=== PATIENT | male | born 1970 ===

== ENCOUNTER 2025-10-20 17:11 | Emergency (ER) | payer OTHER ==
[~2025-10-20 17:11] MED LIST: Iopamidol 370 76% 100 ML VIAL ONE
[2025-10-20 17:33] LABS: Glucose, Urine (Dipstick) Negative (Negative); Leukocyte Negative (Negative); Protein, Urine (Dipstick) 30 mg/dL (Neg-Trace); Specific Gravity, Urine 1.020 (1.005-1.030)
[2025-10-20 17:39] LABS: Bacteria/HPF Rare-Few HPF (None Seen); CAUTI Indications for Culture Pelvic or flank pain; WBC/HPF 0-3 HPF (0-3)
[2025-10-20 17:40] LABS: Mucous/LPF Few LPF (<2+); Urine Culture Reflex No No
[2025-10-20 17:42] LABS: #Basophils 0.1 thou/uL (0.0-0.2); #Eosinophils 0.3 thou/uL (0.0-0.7); #Lymphocytes 4.0 thou/uL (1.20-3.40); #Monocytes 1.0 thou/uL (0.11-0.59); #Neutrophils 8.3 thou/uL (1.40-6.50); %Basophils 1.0 % (0.0-1.0); %Eosinophils 1.9 % (0.0-10.0); %Lymphocytes 29.3 % (21.0-51.0); %Monocytes 7.1 % (0.0-10.0); %Neutrophils 60.7 % (42.0-75.0); Hematocrit 53.7 % (42.0-52.0); Hemoglobin 17.3 g/dL (14.0-18.0); Mean Corpuscular Hemoglobin 30.5 pg (27.0-31.0); Mean Corpuscular Volume 94.6 fl (78.0-98.0); Platelet Count 466 10x3/uL (130-400); Red Blood Cell (RBC) Count 5.68 mill/uL (4.70-6.10); White Blood Cell (WBC) Count 13.7 10x3/uL (4.8-10.8)
[2025-10-20 17:58] LABS: ALT (SGPT) 48 U/L (Less than 45); AST (SGOT) 39 U/L (11-34); Albumin 4.5 g/dL (3.1-4.5); Alkaline Phosphatase 67 U/L (40-110); Anion Gap 18 mmol/L (10-20); BUN (Urea Nitrogen) 13 mg/dL (8.4-25.7); Bilirubin, Total 0.6 mg/dL (0.3-1.2); Calc. Creatinine Clearance 0 mL/min (70-130); Calcium 9.5 mg/dL (7.8-10.44); Carbon Dioxide 22 mmol/L (22-29); Chloride 103 mmol/L (98-107); Globulin 2.7 g/dL (2.4-3.5); Glucose 121 mg/dL (70-105); Potassium 3.8 mmol/L (3.5-5.1); Sodium 139 mmol/L (136-145)
[2025-10-20] MEDS ORDERED: Acetaminophen 500 MG TAB ONE (18:48)
[2025-10-20] MEDS ORDERED: Orphenadrine Citrate 60 MG/2 ML VIAL ONE (18:49)
[2025-10-20] MEDS ORDERED: Ketorolac Tromethamine 30 MG (1 mL) VIAL ONE (18:49)
[2025-10-20] MEDS ORDERED: Dicyclomine 10 MG CAP ONE (19:32)
== END 2025-10-20 20:03 | disposition home or self-care (01) ==
LOC: MADERS 17:11
DX: S16.1XXA Strain of muscle, fascia and tendon at neck level, initial encounter (principal); S39.012A Strain of muscle, fascia and tendon of lower back, initial encounter; S80.01XA Contusion of right knee, initial encounter; R31.29 Other microscopic hematuria; V89.2XXA Person injured in unspecified motor-vehicle accident, traffic, initial encounter
CPT/HCPCS: 70450; 71260; 72125; 74177; 80053; 81001; 85025; 96374; 96375; J1885; J2360; J3010; Q9967